=== PATIENT | male | born 1960 | race Caucasian/White ===

== ENCOUNTER 2017-03-06 08:48 | Inpatient (IN) | payer OTHER ==
[~2017-03-06] VITALS: Ht 167.6 cm; Wt 93.6 kg
[2017-03-07] MEDS ORDERED: L-AR1000 PO (11:48)
[2017-03-07] MEDS ORDERED: VITA1000 PO (11:48)
[2017-03-07] MEDS ORDERED: ZINC100T3 PO (11:48)
[2017-03-07] MEDS ORDERED: MULT-65 PO (11:48)
[2017-04-02] MEDS ORDERED: CHLORHEXIDINE GLUCONATE 2 % 1 PACK (2 CLOTHS) TOPICAL PRN (07:30)
[2017-04-02] MEDS ORDERED: POVIDONE IODINE 7.5% SCRUB 118 ML BOTTLE TOPICAL SCH (07:30)
[2017-04-02] MEDS ORDERED: ROPIVACAINE PERI-ARTICULAR INJECTION. P-ARTICULR SCH ×5 (07:30)
[2017-04-02] MEDS ORDERED: DEXAMETHASONE SOD PHOS 20 MG/5 ML VIAL IV SCH (07:30)
[2017-04-02] MEDS ORDERED: VANCOMYCIN 1000 MG/NS 250 ML (for <70 kg) IV SCH ×2 (07:30)
[2017-04-02] MEDS ORDERED: ceFAZolin 2 GM PREMIX 50 ML IV SCH (07:30)
[2017-04-02] MEDS ORDERED: TRANEXAMIC ACID IV SCH ×2 (07:30→12:00)
[2017-04-02] MEDS ORDERED: INSULIN HUMAN REGULAR 1,000 UNITS/10 ML VIAL SQ PRN (07:30)
[2017-04-02] MEDS ORDERED: SODIUM CHLORIDE 0.9% IV SCH ×2 (07:30→12:00)
[2017-04-02] MEDS ORDERED: LACTATED RINGER'S 1000 ML IV PRN (07:30)
[2017-04-02] MEDS ORDERED: METOPROLOL TARTRATE 25 MG TAB PO PRN (07:30)
[2017-04-02] MEDS ORDERED: SODIUM CHLORID 0.9% 500 ML IV PRN (07:30)
[2017-04-02] MEDS ORDERED: POVIDONE IODINE 5% (ANTISEPSIS KIT) 4 APPLICATIONS EACH NARE PRN (07:30)
[2017-04-02 07:47] VITALS: BP 135/77; PULSE 65; RESP 20; TEMP 98; O2SAT 98
[2017-04-02] MEDS ORDERED: MIDAZOLAM HCL 2 MG/2 ML VIAL ONE (09:08)
[2017-04-02] MEDS ORDERED: FAMOTIDINE 20 MG/2 ML VIAL ONE (09:09)
[2017-04-02] MEDS ORDERED: GENTAMICIN SULFATE 80 MG/2 ML VIAL ONE (09:18)
[2017-04-02] MEDS ORDERED: ACETAMINOPHEN 1000 MG/100 ML VIAL IV ONE (09:36)
[2017-04-02] MEDS ORDERED: fentaNYL CITRATE 250 MCG/5 ML AMP ONE (09:37)
--- NOTE | 2017-04-02 11:50 | PD.OP ---
cc: Ariel Ross MD Operative Report Date of Surgery: Apr 02, 2017 Preoperative Diagnosis: Right knee severe osteoarthritis Postoperative Diagnosis: Same Procedure: Right total knee arthroplasty Anesthesia: Spinal and adductor canal block Surgeon: Ariel Ross Metal Box Maker(s): ERICA Gatica The surgical procedure was assisted by my Advanced Registered Nurse Practitioner. My MANAGER BUSINESS INTELLIGENCE presence was necessary throughout this case for the manipulation and positioning of the surgical extremity. My MANAGER BUSINESS INTELLIGENCE was assisting me throughout the duration of this procedure. The skill set of an Advance Registered Nurse Practitioner was medically necessary to complete this procedure. During the surgical case, the registered nurse surgical services was working at the back table and the Advance Registered Nurse Practitioner was directly assisting me. Operation and Findings: IMPLANTS: DePuy Attune: Patella: size 35. Femur, posterior stabilized size 6. Tibia, rotating platform size 6. Tibial insert, rotating platform, posterior stabilized size 5 mm thickness. ESTIMATED BLOOD LOSS: 250 cc TOURNIQUET TIME: 41 minutes at 250 mmHg pressure. JUSTIFICATION FOR PROCEDURE: The patient has end-stage osteoarthritis to the knee. There is an attached conservative measures pathway form in the chart that describes the nonoperative measures that were undertaken prior to consideration of surgical management. The patient understood the risks and benefits of surgical management. See my office notes for further details PROCEDURE: The patient was brought back to the operative theatre. Adequate anesthesia was obtained. The patient received intravenous vancomycin and Ancef. The lower extremity was prepped and draped in the usual sterile fashion.The leg was exsanguinated, the tourniquet was raised. A standard anterior incision was performed followed by medial parapatellar arthrotomy was performed. End-stage arthritis was identified. Osteotomy of the patella was performed. We drilled holes for the patella. We trialed the patella component. We placed an intramedullary guide into the distal femur. We ultimately resected 12 mm off of the distal femur in 5 degrees of valgus. The remnants of the ACL and PCL were resected. Osteotomy of the proximal tibia was performed, resecting 5 mm off of the medial side. This was done with 3 degrees of posterior slope using an extramedullary guide. The distal end of the guide was placed in the mid aspect of the ankle. The femur was sized, and four chamfer cuts were completed in 3 of external rotation. We then cut the central box in the distal femur to replace the PCL. We resected the remnants of the menisci and removed osteophytes off of the femur and tibia. We then trialed the knee. We punched the tibia for the keel, and then used standard technique to cement in components. Excess cement was removed. We trialed the knee again and the final polyethylene thickness was chosen to provide extension to 0 degrees, and flexion of 140 degrees to gravity. The ligaments were appropriately balanced. Lateral release was necessary to obtain excellent patellofemoral tracking. The tourniquet was released and adequate hemostasis was obtained. An intra- articular injection of a ropivacaine cocktail was injected. The posterior knee was inspected for excess cement, which was removed. The final polyethylene was put into position after thorough irrigation. We then closed deep fascia with a #2 Stratafix followed by skin with 2-0 Vicryl followed by shweta. Postop plan is to weight-bear as tolerated. DVT prophylaxis will be performed with Alvarez, DARLENE bernard, early mobilization, and Lovenox followed by aspirin. Ariel Ross MD Apr 02, 2017 11:50
[2017-04-02] MEDS ORDERED: NORC5TAB PO (11:51)
[2017-04-02] MEDS ORDERED: ENOX40P SQ (11:51)
[2017-04-02] MEDS ORDERED: ASPI325T PO (11:51)
[2017-04-02] MEDS ORDERED: Post-op Orders (for Pharmacy) MISC XX ONE (12:00)
[2017-04-02] MEDS ORDERED: diphenhydrAMINE HCL 50 MG/ML VIAL IV PRN (12:00)
[2017-04-02] MEDS ORDERED: NALOXONE HCL 0.4 MG/ML AMP IV PRN (12:00)
[2017-04-02] MEDS ORDERED: ZOLPIDEM TARTRATE 5 MG TAB PO PRN (12:00)
[2017-04-02] MEDS ORDERED: BISACODYL 10 MG SUPP RECTAL PRN (12:00)
[2017-04-02] MEDS ORDERED: MORPHINE SULFATE 4 MG/ML INJ IV PUSH PRN (12:00)
[2017-04-02] MEDS ORDERED: ONDANSETRON HCL 4 MG/2 ML VIAL IVP PRN (12:00)
[2017-04-02] MEDS ORDERED: SODIUM CHLORIDE 0.9% FLUSH 5 ML FLUSH IVF PRN (12:00)
[2017-04-02] MEDS ORDERED: ALUMINUM/MAGNESIUM/SIMETH 30 ML CUP PO PRN (12:00)
[2017-04-02] MEDS ORDERED: DO NOT ADM ANY ANTICOAGULANT DRUGS PRN (12:15)
[2017-04-02] MEDS ORDERED: *morphine SULFATE 8 MG/ML PERIprocedure ONLY ONE ×2 (12:57→13:25)
--- NOTE | 2017-04-02 13:43 | RADRPT ---
EXAM DATE/TIME: 04/02/2017 12:49 [facility] COMPARISON: No previous studies available for comparison. INDICATIONS : Post op right total knee. MEDICAL HISTORY : None. SURGICAL HISTORY : None. ENCOUNTER: Initial ACUITY: 1 day PAIN SCORE: 10/10 LOCATION: Right knee. FINDINGS: Postsurgical features of right knee arthroplasty. Arthroplasty components are in anatomic alignment. No significant acute bony fracture. Immediate postsurgical soft tissue features. CONCLUSION: 1. Status post right knee arthroplasty in anatomic alignment without significant acute bony fracture. Sami Remy MD on April 02, 2017 at 13:41 Board Certified Radiologist. This report was verified electronically.
[2017-04-02] MEDS ORDERED: PROPOFOL 200 MG/20 ML AMP IV ONE (14:55)
[2017-04-02] MEDS ORDERED: ONDANSETRON HCL 4 MG/2 ML VIAL IV PUSH ONE (14:56)
[2017-04-02] MEDS ORDERED: LACTATED RINGER'S 1000 ML INJ 1,000 ML IV ONE (14:56)
--- NOTE | 2017-04-02 15:50 | HHI.DCPOC ---
Discharge Care Plan Diagnosis: (1) Status post total knee replacement, right (2) Primary localized osteoarthrosis, lower leg Your Health Problems Are: Difficulty with ADL Goals to Promote Your Health * To prevent worsening of your condition and complications * To maintain your health at the optimal level Directions to Meet Your Goals Take your medications as prescribed Follow your dietary instruction Follow activity as directed Keep your appointments as scheduled Take your immunizations and boosters as scheduled If your symptoms worsen call your PCP, if no PCP go to Urgent Care Center or Emergency Room Smoking is Dangerous to Your Health. Avoid second hand smoke Call the 24-hour hour crisis hotline for domestic abuse at Mauricio Varela Apr 02, 2017 15:50
--- NOTE | 2017-04-02 15:51 | HHI.FF ---
Face to Face Verification Diagnosis: (1) Primary localized osteoarthrosis, lower leg (2) Status post total knee replacement, right Physical Therapy Gait training, Transfer training, bed to chair Knee: Total knee Right LE Weight Bearing: WB as tolerated Right LE Range of Motion: Active ROM Nursing Nursing: Veronica teaching, Dressing changes Dressing Changes: Daily dressing change I have seen patient Santos Wu Jr Ruslan on 04/02/17. My clinical findings support the need for the requested home health care services because: Limited ability to care for self High risk of falls I certify that my clinical findings support that this patient is homebound because: Post-op weakness Unsteady gait/balance Mauricio Varela Apr 02, 2017 15:51
[2017-04-02] MEDS ORDERED: WALKER WHEELS/F1 MIS (15:57)
[2017-04-02] MEDS ORDERED: COMMODE 3-IN-11 MIS (15:57)
[2017-04-02] MEDS ORDERED: CPMMACHINE (15:57)
[2017-04-02 17:20] VITALS: BP 123/72; PULSE 60; RESP 18; TEMP 96.9; O2SAT 99
[2017-04-02] MEDS: SODIUM CHLORIDE 0.9% FLUSH 5 ML FLUSH IVF SCH (20:06)
[2017-04-02 20:19] VITALS: BP 121/65; PULSE 61; RESP 18; TEMP 96.8; O2SAT 97
[2017-04-02] MEDS: SODIUM CHLOR 0.9% 1000 ML INJ 1,000 ML IV SCH (20:23)
[2017-04-02] MEDS: ACETAMINOPHEN/HYDROcodone 325 MG/5 MG TAB PO PRN (22:50)
[2017-04-03] VITALS (7 sets, daily range): BP systolic 103–124; BP diastolic 55–70; PULSE 59–81; RESP 16–18; TEMP 97.1–98.8; O2SAT 95–100
[2017-04-03] MEDS: ACETAMINOPHEN/HYDROcodone 325 MG/5 MG TAB PO PRN ×5 (02:53→21:34)
[2017-04-03] MEDS ORDERED: DEXAMETHASONE SOD PHOS 20 MG/5 ML VIAL IV ONE (07:45)
[2017-04-03] MEDS: SODIUM CHLOR 0.9% 1000 ML INJ 1,000 ML IV SCH ×2 (07:47→10:53)
[2017-04-03] MEDS: SODIUM CHLORIDE 0.9% FLUSH 5 ML FLUSH IVF SCH ×2 (08:15→20:06)
[2017-04-03 08:16] LABS: HEMATOCRIT 34.4 % (39.0-51.0); MEAN CELL VOLUME 89.1 FL (80.0-100.0); MEAN CORPUSCULAR HEMOGLOBIN 30.3 PG (27.0-34.0); PLATELET COUNT 155 TH/MM3 (150-450); RED BLOOD COUNT 3.86 MIL/MM3 (4.50-5.90); RED CELL DISTRIBUTION WIDTH 12.9 % (11.6-17.2); REVIEW FLAG FINAL; WHITE BLOOD COUNT 8.2 TH/MM3 (4.0-11.0)
[2017-04-03] MEDS: ENOXAPARIN SODIUM 40 MG/0.4 ML SYRINGE SQ SCH (10:53)
--- NOTE | 2017-04-03 12:20 | PD.ORT.PN ---
Subjective Post Op Day #: 1 Subjective Remarks Patient had some dizziness this morning from anesthesia. Patient is feeling better and having minimal pain. Objective Vitals Vital Signs Date Time Temp Pulse Resp B/P Pulse Ox O2 Delivery O2 Flow Rate FiO2 04/03/17 09:54 96 04/03/17 08:00 98.8 59 16 105/60 98 04/03/17 05:40 21 04/03/17 04:31 97.9 70 17 103/55 95 04/03/17 00:35 97.1 78 18 112/55 96 04/02/17 20:19 96.8 61 18 121/65 97 04/02/17 17:20 96.9 60 18 123/72 99 04/02/17 16:36 56 21 121/81 100 Nasal Cannula 3 04/02/17 16:00 97.7 56 22 150/83 100 Nasal Cannula 3 04/02/17 15:00 53 22 132/63 99 Nasal Cannula 3 04/02/17 14:00 52 21 129/68 100 Nasal Cannula 3 04/02/17 13:30 53 20 123/75 100 Nasal Cannula 3 04/02/17 13:00 71 20 125/70 100 Nasal Cannula 3 04/02/17 12:45 74 22 133/81 100 Nasal Cannula 4 04/02/17 12:30 72 20 128/56 98 Nasal Cannula 4 04/02/17 12:15 97.6 85 20 124/56 94 Nasal Cannula 4 I/O 04/02/17 04/02/17 04/02/17 04/03/17 04/03/17 04/03/17 07:00 15:00 23:00 07:00 15:00 23:00 Intake Total 2000 ml 1288 ml 1139 ml Output Total 150 ml 400 ml 1400 ml 250 ml Balance 1850 ml 888 ml -261 ml -250 ml Intake Oral 360 ml 720 ml IV Total 928 ml 419 ml Other 2000 ml Output Urine Total 0 ml 400 ml 1400 ml 250 ml Estimated Blood Loss 150 ml # Voids 1 # Bowel Movements 0 0 Result Diagram: 04/03/17 0628 Procedures Right TKA Objective Remarks The patient's dressing was changed with scant serosanguineous drainage. Incision is well approximated with surgical clips intact. No erythema or s/s of infection. EHL/TA/G intact. 2+ pedal pulse. Calf is soft and nontender. + SILT. Assessment & Plan Ortho Post Op Day #: 1 Problem List: Assessment and Plan POD #1: Right TKA 1. WBAT RLE 2. Lovenox followed by ASA for DVT prophylaxis 3. Ice to the right knee PRN 4. Patient is stable for discharge home with home health today or tomorrow depending on how he is feeling 5. F/U with Dr. Ross as scheduled. Mauricio Vareal Apr 03, 2017 12:19
[2017-04-03] MEDS: MULTIVITAMINS/MINERALS THERAPEUTIC TAB PO SCH (20:06)
[2017-04-03] MEDS: DOCUSATE SODIUM 100 MG CAP PO SCH (20:06)
[2017-04-03] MEDS: MAGNESIUM HYDROXIDE SUSP 30 ML CUP PO PRN (20:06)
[2017-04-04 00:09] VITALS: BP 117/59; PULSE 85; RESP 18; TEMP 99.5; O2SAT 97
[2017-04-04] MEDS: SODIUM CHLOR 0.9% 1000 ML INJ 1,000 ML IV SCH (01:19)
[2017-04-04] MEDS: ACETAMINOPHEN/HYDROcodone 325 MG/5 MG TAB PO PRN ×4 (01:29→13:33)
[2017-04-04 07:22] LABS: HEMATOCRIT 31.3 % (39.0-51.0); MEAN CELL VOLUME 90.6 FL (80.0-100.0); MEAN CORPUSCULAR HGB CONC 33.1 % (32.0-36.0); PLATELET COUNT 150 TH/MM3 (150-450); RED BLOOD COUNT 3.45 MIL/MM3 (4.50-5.90); RED CELL DISTRIBUTION WIDTH 13.1 % (11.6-17.2); REVIEW FLAG FINAL; WHITE BLOOD COUNT 5.9 TH/MM3 (4.0-11.0)
[2017-04-04 08:00] VITALS: BP 112/62; PULSE 74; RESP 17; TEMP 97.8; O2SAT 96
[2017-04-04] MEDS: SODIUM CHLORIDE 0.9% FLUSH 5 ML FLUSH IVF SCH (09:00)
[2017-04-04] MEDS: DOCUSATE SODIUM 100 MG CAP PO SCH (09:44)
[2017-04-04] MEDS: MULTIVITAMINS/MINERALS THERAPEUTIC TAB PO SCH (09:44)
[2017-04-04] MEDS: MAGNESIUM HYDROXIDE SUSP 30 ML CUP PO PRN (09:53)
[2017-04-04 11:33] VITALS: O2SAT 96
[2017-04-04] MEDS: ENOXAPARIN SODIUM 40 MG/0.4 ML SYRINGE SQ SCH (11:57)
[2017-04-04 12:00] VITALS: BP 120/73; PULSE 66; RESP 18; TEMP 98.5; O2SAT 96
--- NOTE | 2017-04-06 21:47 | HHI.DS ---
Discharge Summary Admission Date Apr 02, 2017 at 07:00 Discharge Date: Apr 04, 2017 Admitting Diagnosis Primary localized OA, lower leg Status post total knee replacement, right Diagnosis: (1) Primary localized osteoarthrosis, lower leg Diagnosis: Principal (2) Status post total knee replacement, right Diagnosis: Principal Procedures Right TKA Brief History This is a 56 year old male patient with severe OA of the right knee CBC/BMP: 04/04/17 0631 Significant Findings Laboratory Tests Test 04/04/17 06:31 Red Blood Count 3.45 MIL/MM3 (4.50-5.90) Hemoglobin 10.3 GM/DL (13.0-17.0) Hematocrit 31.3 % (39.0-51.0) PE at Discharge The patient's dressing was changed with scant serosanguineous drainage. Incision is well approximated with surgical clips intact. No erythema or s/s of infection. EHL/TA/G intact. 2+ pedal pulse. Calf is soft and nontender. + SILT. Hospital Course The patient was admitted to the hospital for severe OA of the right knee to have a right TKA. The patient's surgery went well with no complication. The patient was allowed to be WBAT on the RLE. The patient was placed on a regular diet. The patient was placed on Lovenox followed by ASA for DVT prophylaxis. The patient was discharged home with home health and will f/u with Dr. Ross as previously scheduled. Pt Condition on Discharge: Stable Discharge Disposition: Disch w/ Home Health Serv Discharge Instructions Diet Instructions: As Tolerated, No Restrictions Activities You Can Perform: Weight Bearing as [place] Activities to Avoid: Strenuous Activity Follow up Referrals: Orthopedics with Ariel Ross MD New Medications: Aspirin (Aspirin) 325 Mg Tab 325 MG PO DAILY Start Aspirin after Lovenox is completed. Prevent Blood Clot # 30 Ref 0 TAB Commode 3-in-1 (Commode 3-in-1) 1 Mis Mis 1 EA .ROUTE DIRECTED #1 Ref 0 EA CPM-Continuous Passive Motion Machine (CPM-Continuous Passive Motion Machine) 1 Ea Device 1 EA .ROUTE DIRECTED #1 Ref 0 EA Enoxaparin Inj (Lovenox Inj) 40 Mg/0.4 Ml Syr 40 MG SQ DAILY Start Aspirin after Lovenox is completed. Blood Clot Prevention # 10 Ref 0 SYRINGE Hydrocodone-Acetaminophen (Barrett) 5-325 mg Tab 1-2 TAB PO Q4H PRN PAIN #60 Ref 0 TAB Walker with Front Wheels (Walker with Front Wheels) 1 Mis Mis 1 EA .ROUTE DIRECTED #1 Ref 0 EA Continued Medications: Arginine (l-Arginine) 1,000 Mg Tab 1 TAB PO DAILY Cholecalciferol (Vitamin D-1000) 1,000 Unit Tab 3000 UNITS PO DAILY Nutritional Supplement #1 Ref 0 BOTTLE Multiple Vitamin (Multi-Vitamin Daily) 1 Tab Tab 1 TAB PO DAILY Nutritional Supplement Ref 0 TAB Zinc Gluconate (Zinc Gluconate) 100 Mg Tab 100 MG PO DAILY Nutritional Supplement Ref 0 TAB Mauricio Varela Apr 06, 2017 21:47
== END 2017-04-04 15:30 | disposition home health service (06) | DRG 470 ==
LOC: HSDI 04-02 07:00 → N06A 04-02 17:11
PROVIDERS: ADMIT Orthopaedic Surgery; ATTEND Orthopaedic Surgery
PROC: 0SRC0J9 Replacement of Right Knee Joint with Synthetic Substitute, Cemented, Open Approach (ICD-10-PCS; principal; 2017-04-02 09:39)
DX: M17.11 Unilateral primary osteoarthritis, right knee (principal); E03.9 Hypothyroidism, unspecified
CPT/HCPCS: 73560; 85027; 86850; 86900; 86901; 94150; C1776; J0131; J0171; J0690; J0735; J1100; J1580; J1650; J1885; J2250; J2270; J2405; J2795; J3010; J3370; J7030; J7050; J7120; L1830

== ENCOUNTER → 2017-03-07 | Outpatient (CLI) | payer OTHER ==
[~2017-03-07] MED LIST: L-AR1000 PO; MULT-65 PO; VITA1000 PO; ZINC100T3 PO
--- NOTE | 2017-03-07 18:12 | EKG ---
Date Performed: 03/07/2017 Time Performed: 12:03:33 PTAGE: 56 years EKG: SINUS BRADYCARDIA BORDERLINE ECG NO PREVIOUS TRACING DOCTOR: Wilmer Juarez Interpretating Date/Time 03/07/2017 18:12:00
== END ==
LOC: CPRE 11:19
PROVIDERS: ATTEND Orthopaedic Surgery
DX: Z01.810 Encounter for preprocedural cardiovascular examination (principal); M17.11 Unilateral primary osteoarthritis, right knee; M79.609 Pain in unspecified limb; M25.50 Pain in unspecified joint; R94.31 Abnormal electrocardiogram [ECG] [EKG]
CPT/HCPCS: 93005